=== PATIENT | male | born 1965 | race Caucasian/White ===

== ENCOUNTER → 2023-04-24 11:10 | Outpatient (REF) | payer BC, SELFPAY | LOC: RAD 11:10 | PROVIDERS: ATTENDING PHYSICIAN Physician Assistant | DX: Z00.00 Encounter for general adult medical examination without abnormal findings (principal) | CPT/HCPCS: 73030 ==

== ENCOUNTER → 2023-06-22 12:19 | Outpatient (REF) | payer BC, SELFPAY | LOC: RAD 12:19 | PROVIDERS: ATTENDING PHYSICIAN Nurse Practitioner Family | DX: M79.662 Pain in left lower leg (principal) | CPT/HCPCS: 93971 ==

== ENCOUNTER → 2023-10-17 15:14 | Outpatient (REF) | payer BC, SELFPAY | LOC: RAD 15:14 | PROVIDERS: ATTENDING PHYSICIAN Physician Assistant | DX: M79.662 Pain in left lower leg (principal) | CPT/HCPCS: 93971 ==

== ENCOUNTER → 2024-06-20 13:40 | Outpatient (REF) | payer BC, SELFPAY | LOC: RAD 13:40 | PROVIDERS: ATTENDING PHYSICIAN Physician Assistant | DX: M79.604 Pain in right leg (principal) | CPT/HCPCS: 73552 ==

== ENCOUNTER → 2024-07-19 12:26 | Outpatient (REF) | payer BC, SELFPAY | LOC: REG 12:26 | PROVIDERS: ATTENDING PHYSICIAN Physician Assistant | DX: M53.3 Sacrococcygeal disorders, not elsewhere classified (principal) | CPT/HCPCS: 72220 ==

== ENCOUNTER → 2025-01-08 09:42 | Outpatient (REF) | payer BC, SELFPAY | LOC: RAD 09:42 | PROVIDERS: ATTENDING PHYSICIAN Physician Assistant | DX: R00.2 Palpitations (principal) | CPT/HCPCS: 71046 ==